=== PATIENT | female | born 1975 | race Two or more races ===

== ENCOUNTER 2021-07-27 10:10 | Inpatient (IN) | payer MEDICAID ==
[~2021-07-27] VITALS: Ht 172.7 cm; Wt 79.1 kg
--- NOTE | 2021-07-27 10:12 | NUR ---
MOVE SHEET SUBMITTED AND CALLED FOR TELE BED.
[2021-07-27] MEDS ORDERED: methylPREDNISolone SOD SUCC 125 MG/2ML VIAL IV ONE (10:30)
[2021-07-27] MEDS ORDERED: KETOROLAC TROMETHAMINE INJ 30 MG/ML VIAL IV ONE (10:30)
--- NOTE | 2021-07-27 10:30 | NUR ---
SALINE LOCK ESTABLISHED, BLOOD DRAWN AND SENT TO LAB
[2021-07-27] MEDS ORDERED: methylPREDNISolone SOD SUCC 125 MG/2ML VIAL ONE (10:31)
[2021-07-27] MEDS ORDERED: KETOROLAC TROMETHAMINE 15 MG/ML VIAL ONE (10:34)
--- NOTE | 2021-07-27 10:50 | NUR ---
URINE COLLECTED AND SENT TO LAB
--- NOTE | 2021-07-27 11:00 | NUR ---
COVID SWAB DONE AND SENT TO LAB
[2021-07-27 11:17] LABS: BASOPHILS % (AUTO) 0.3 % (0.0-2.0); D-DIMER 0.71 mg/L(FEU (0.17-0.50); EOSINOPHILS % (AUTO) 0.1 % (0.0-6.0); HEMATOCRIT 40 % (33-45); HEMOGLOBIN 13.6 g/dL (11.5-14.8); LYMPHOCYTES # (AUTO) 0.8 K/uL (0.8-4.8); LYMPHOCYTES % (AUTO) 19.7 % (20.0-44.0); MEAN CORPUSCULAR HGB CONC 34 g/dl (31.0-36.0); MEAN CORPUSCULAR VOLUME 93 fL (82-100); MONOCYTES # (AUTO) 0.1 K/uL (0.1-1.30); MONOCYTES % (AUTO) 2.7 % (2.0-12.0); NEUTROPHILS % (AUTO) 77.2 % (43.0-81.0); PLATELET COUNT (AUTO) 159 K/uL (150-450); RED BLOOD CELL COUNT(AUTO) 4.28 MIL/uL (4.0-5.2); WHITE BLOOD COUNT (AUTO) 3.8 K/uL (4.3-11.0)
[2021-07-27 11:36] LABS: BILIRUBIN,URINE SMALL (NEGATIVE); COLOR,URINE YELLOW (YELLOW); LEUKOCYTE ESTERASE ,URINE NEGATIVE (NEGATIVE); NITRITE, URINE NEGATIVE (NEGATIVE); PH,URINE 7.5 (5.0-8.0); PROTEIN,URINE >=300 mg/dl (NEGATIVE); UGLUCOSE NEGATIVE (NEGATIVE)
[2021-07-27] MEDS ORDERED: DEXA6TAB PO (11:44)
[2021-07-27] MEDS ORDERED: HYDR25TA4 PO (11:44)
--- NOTE | 2021-07-27 11:58 | NUR ---
GOT BED 201
[2021-07-27 12:04] LABS: CREATINE KINASE, TOTAL 257 U/L (26-192)
[2021-07-27 12:06] LABS: BACTERIA,URINE Few /HPF (None Seen); SQUAMOUS EPITHELIAL CELL,UR Moderate /HPF (None Seen)
[2021-07-27 12:07] LABS: CALCIUM, SERUM 7.9 mg/dL (8.5-10.1); CARBON DIOXIDE 29 mmol/L (21-32); CHLORIDE 103 mmol/L (98-107); GLUCOSE 112 mg/dL (74-106); POTASSIUM 3.7 mmol/L (3.5-5.1); SODIUM SERUM 136 mmol/L (136-145); UREA NITROGEN, BLOOD 10 mg/dL (7-18)
--- NOTE | 2021-07-27 12:07 | NUR ---
REPORT GIVEN TO BEBETO DOLAN FOR SHERWIN.
--- NOTE | 2021-07-27 12:09 | NUR ---
[facility] CALLED SENIOR AIR DIRECTOR PAGED.
[2021-07-27 12:21] LABS: ALANINE AMINOTRANSFERASE 157 U/L (12-78); ALBUMIN 2.9 g/dL (3.4-5.0); ALKALINE PHOSPHATASE 70 U/L (46-116); ASPARTATE AMINOTRANSFERASE 175 U/L (15-37); BILIRUBIN,TOTAL 0.3 mg/dL (0.2-1.0); TOTAL PROTEIN, SERUM 6.7 g/dL (6.4-8.2)
--- NOTE | 2021-07-27 12:35 | NUR ---
pt transferred to tele unit per acls protocol.
--- NOTE | 2021-07-27 12:55 | NUR ---
Patient arrived via gurney at 12:50pm, from ER. Patient AO X 4, able to make needs known, can follow simple commands, no apparent distress noted, breathing even and unlabored. Admitting hospitalist made aware of the patient's arrival. Patient admitting diagnosis COVID - 19 PNA. Patient's vital signs within normal limits, no complained of facial numbness or weakness, no extremity numbness or weakness at this time, no dizziness, no palpitations. Skin intact, warm to touch, no pallor or cyanosis noted. Patient oriented with use of call lights, use of bed control, use of telephone and tv control, also introduces REDEYE GUNNER and RN assigned for today, verbalized understanding and gratitude. All belongings written in the inventory list. All needs attended, kept clean and dry, call light left within reach, safety precautions in place, brakes locked, side rails up X 2, will monitor closely for any changes.
[2021-07-27] MEDS ORDERED: ALBUTEROL SULFATE 8 GM HFA.AER.AD IH PRN (13:30)
[2021-07-27] MEDS ORDERED: BENZONATATE 100 MG CAPSULE PO PRN (13:30)
[2021-07-27] MEDS ORDERED: ONDANSETRON HCL/PF 4 MG/2 ML VIAL IVP PRN (13:30)
[2021-07-27] MEDS ORDERED: ALBUTEROL FS 2.5 MG/3 ML VIAL.NEB NEB PRN (14:00)
[2021-07-27] MEDS: ACETAMINOPHEN 325 MG TABLET PO PRN (15:25)
[2021-07-27] MEDS ORDERED: IPRATROPIUM/ALBUTEROL INHALER IH PRN (15:30)
[2021-07-27] MEDS: ENOXAPARIN SODIUM 40 MG/0.4 ML DISP.SYRIN SQ SCH (16:02)
--- NOTE | 2021-07-27 18:15 | NUR ---
RN CLOSING NOTES Patient lying in bed, no shortness of breath, respirations even and unlabored, no apparent distress noted, no dizziness, no palpitations, no chest pain during shift. Kept clean and dry, all needs attended, call light left within reach, safety precautions in place, brakes locked, frequent visual checks rendered, side rails up X 2, will endorse to next shift for continuity of care.
--- NOTE | 2021-07-27 19:38 | NUR ---
BUTTON STATION WORKER NOTES SR-[id number] ON TELE MONITOR,RESTING COMFORTABLY ON BED,LAYING ON RIGHT SIDE POSITION,BREATHING NON LABORED,DROPLET ISOLATION,AWAITING PCR RESULT.COUGH A LOT PRODUCTIVELY,ABLE TO COUGH OUT MUCUS.SALINE LOCK LEFT AC INTACT AND PATENT,BEDREST,CALL LIGHT IN REACH.NEEDS ANTICIPATED.
[2021-07-27 20:00] VITALS: BP 106/60
[2021-07-28] VITALS: BP 100/62
--- NOTE | 2021-07-28 02:39 | NUR ---
RN NOTE RECEIVED PATIENT VIA GURNEY. PATIENT IS ALERT AND ORIENTED X4. ABLE TO MAKE NEEDS KNOWN. BREATHING EVEN AND UNLABORED. ON SUPPLEMENTAL OXYGEN AT 3L/MIN VIA NASAL CANNULA. DENIES FEELING SOB. DENIES CHEST PAIN. ON TELE MONITORING, SINUS RHYTHM. SKIN WARM AND DRY. NOTED WITH LEFT AC 18G, NO IVF RUNNING. NO INFILTRATION. DENIES CONSTIPATION. ABDOMEN SOFT AND NON-TENDER. DENIES PAIN AT THIS TIME. ALL NEEDS ATTENDED. BED LOW, IN LOCKED POSITION. CALL LIGHT WITHIN REACH.
[2021-07-28] MEDS: ACETAMINOPHEN 325 MG TABLET PO PRN (03:16)
--- NOTE | 2021-07-28 03:48 | NUR ---
RN NOTE PATIENT COMPLAINED OF HEADACHE AND REQUESTING FOR TYLENOL. OFFERED FLUIDS FOR HYDRATION. ADMINISTERED TYLENOL 650 MG PER MD. ALL NEEDS ATTENDED. WILL CONTINUE TO MONITOR.
[2021-07-28 04:00] VITALS: BP_SYST 112; BP_SYST 90; BP_DIAS 56; BP_DIAS 76
[2021-07-28 06:48] LABS: BASOPHILS % (AUTO) 0.1 % (0.0-2.0); HEMATOCRIT 39 % (33-45); HEMOGLOBIN 13.2 g/dL (11.5-14.8); LYMPHOCYTES % (AUTO) 12.6 % (20.0-44.0); MEAN CORPUSCULAR HGB CONC 34 g/dl (31.0-36.0); MEAN CORPUSCULAR VOLUME 94 fL (82-100); MONOCYTES % (AUTO) 4.2 % (2.0-12.0); NEUTROPHILS % (AUTO) 83.1 % (43.0-81.0); PLATELET COUNT (AUTO) 188 K/uL (150-450); RED BLOOD CELL COUNT(AUTO) 4.13 MIL/uL (4.0-5.2); WHITE BLOOD COUNT (AUTO) 4.8 K/uL (4.3-11.0)
[2021-07-28 06:49] LABS: LYMPHOCYTES # (AUTO) 0.6 K/uL (0.8-4.8); MONOCYTES # (AUTO) 0.2 K/uL (0.1-1.30)
[2021-07-28 07:17] LABS: ALBUMIN 2.7 g/dL (3.4-5.0); BILIRUBIN,TOTAL 0.3 mg/dL (0.2-1.0); CALCIUM, SERUM 8.1 mg/dL (8.5-10.1); CREATININE 0.8 mg/dL (0.6-1.3); POTASSIUM 3.9 mmol/L (3.5-5.1); TOTAL PROTEIN, SERUM 6.6 g/dL (6.4-8.2)
--- NOTE | 2021-07-28 07:30 | NUR ---
HEAD BATCHER NOTE RECEIVED PATIENT IN BED AWAKE. PATIENT IS ALERT AND ORIENTED X4. ABLE TO MAKE NEEDS KNOWN. BREATHING EVEN AND UNLABORED. ON O2 INHALATION VIA NASAL CANNULA AT 3L/MIN . NO SOB NOTED. NO RESPIRATORY DISTRESS NOTED.ON TELE MONITORING, SINUS RHYTHM. SKIN WARM AND DRY. IV ACCESS ON LEFT AC 18G. NO INFILTRATION. NO IV FLUIDS NOTED. ABDOMEN SOFT AND NON-TENDER. DENIES PAIN AT THIS TIME. ALL NEEDS ATTENDED. BED LOW, IN LOCKED POSITION. CALL LIGHT AND TABLE WITHIN REACH.WILL CONTINUE TO MONITOR THE PATIENT.
[2021-07-28 08:00] VITALS: BP 91/61
[2021-07-28] MEDS: DEXAMETHASONE SOD PHOSPHATE 10 MG/ML VIAL IV SCH (08:32)
[2021-07-28] MEDS: ENOXAPARIN SODIUM 40 MG/0.4 ML DISP.SYRIN SQ SCH (08:34)
[2021-07-28 12:00] VITALS: BP 105/63
--- NOTE | 2021-07-28 15:08 | NUR ---
RN NOTES PATIENT WANTS TO SIGN A WILL AND NEEDS A WITNESS, CALLED HELP DESK TEAM LEADER AND INFORMED THEM.
--- NOTE | 2021-07-28 15:17 | NUR ---
Pt. requested to speak with BRENNA regarding advanced directive. BRENNA spoke with pt. and her privacy attorney [Usha] regarding filling out an advanced directive. BRENNA provided pt. with the advanced directive packet and the number to the Mobile Notary [[place] [phone]]. Pt.'s privacy attorney will be reaching out to the notary.
[2021-07-28 16:00] VITALS: BP 101/68
[2021-07-28] MEDS ORDERED: diphenhydrAMINE HCL 50 MG/ML VIAL IM ONE (16:00)
[2021-07-28] MEDS ORDERED: METOCLOPRAMIDE HCL 10 MG/2 ML VIAL IM ONE (16:00)
--- NOTE | 2021-07-28 18:30 | NUR ---
REINFORCING STEEL ERECTOR NOTE PATIENT IN BED AWAKE. PATIENT IS ALERT AND ORIENTED X4. ABLE TO MAKE NEEDS KNOWN. ON O2 INHALATION VIA NASAL CANNULA AT 3L/MIN . NO SOB NOTED. NO RESPIRATORY DISTRESS NOTED.ON TELE MONITORING, SINUS RHYTHM. SKIN WARM AND DRY. IV ACCESS ON LEFT AC 18G intact. NO INFILTRATION. NO IV FLUIDS NOTED. ABDOMEN SOFT AND NON-TENDER. DENIES PAIN AT THIS TIME. ALL NEEDS ATTENDED.ALL DUE MEDS GIVEN ORDERED. BED LOW, IN LOCKED POSITION. CALL LIGHT AND TABLE WITHIN REACH.WILL ENDORSE INCOMING SHIFT FOR SHERWIN..
[2021-07-28 20:00] VITALS: BP 91/63
--- NOTE | 2021-07-28 20:32 | NUR ---
RN NOTE RECEIVED PATIENT IN BED, SLEEPING, AROUSABLE TO NAME AND TOUCH. ABLE TO MAKE NEEDS KNOWN. BREATHING EVEN AND UNLABORED. NO SOB NOTED. CURRENTLY ON SUPPLEMENTAL OXYGEN AT 3L/MIN VIA NASAL CANNULA. DENIES CHEST PAIN AT THIS TIME. ON TELE MONITORING, SINUS RHYTHM. SKIN WARM AND DRY. NO CHILLS BUT PATIENT REPORTS BEING COLD, PROVIDED WITH EXTRA BLANKETS. OFFERED FLUIDS FOR HYDRATION. NOTED WITH LEFT AC 18G, NO IVF RUNNING. NO INFILTRATION. DENIES PAIN. ALL NEEDS ATTENDED. BED LOW, IN LOCKED POSITION. CALL LIGHT WITHIN REACH. WILL CONTINUE TO MONITOR.
[2021-07-29] VITALS: BP 90/54
[2021-07-29] MEDS: GUAIFENESIN/D-METHORPHAN HB 5 ML UDC PO PRN (00:30)
--- NOTE | 2021-07-29 00:34 | NUR ---
RN NOTE PATIENT NOTED WITH COUGHING THAT LEADS TO MILD SHORTNESS OF BREATH. OXYGEN SATURATION OF 91 PERCENT. COUGH IS NON-PRODUCTIVE AT THIS TIME. PROVIDED WITH FLUIDS. INCREASED OXYGEN VIA NASAL CANNULA FROM 3L TO 5L/MIN. HUMIDIFIER ADDED. PER PATIENT HER NOSE WAS FEELING DRY. OFFERED COUGH MEDICATION. ADMINISTERED ROBITUSSIN DM PER MD ORDER FOR COUGH. HOB SEMI-ENG. WILL CONTINUE TO MONITOR. CALL LIGHT WITHIN REACH.
[2021-07-29 04:00] VITALS: BP 92/56
[2021-07-29 06:13] LABS: HEMATOCRIT 38 % (33-45); HEMOGLOBIN 12.7 g/dL (11.5-14.8); LYMPHOCYTES # (AUTO) 0.8 K/uL (0.8-4.8); LYMPHOCYTES % (AUTO) 8.9 % (20.0-44.0); MEAN CORPUSCULAR HGB CONC 34 g/dl (31.0-36.0); MEAN CORPUSCULAR VOLUME 94 fL (82-100); MONOCYTES # (AUTO) 0.5 K/uL (0.1-1.30); MONOCYTES % (AUTO) 5.4 % (2.0-12.0); NEUTROPHILS % (AUTO) 85.7 % (43.0-81.0); PLATELET COUNT (AUTO) 239 K/uL (150-450); RED BLOOD CELL COUNT(AUTO) 3.99 MIL/uL (4.0-5.2); WHITE BLOOD COUNT (AUTO) 9.4 K/uL (4.3-11.0)
--- NOTE | 2021-07-29 06:18 | NUR ---
RN NOTE NO SIGNIFICANT CHANGES. OXYGEN SATURATION REMAINED IN THE LOW 90'S. OXYGEN TITRATED DOWN TO 3L/MIN FROM 5L/MIN. TOLERATING WELL. PATIENT PREFERS SUPINE POSITION. ALL NEEDS ATTENDED. CALL LIGHT WITHIN REACH.
[2021-07-29 06:39] LABS: CALCIUM, SERUM 8.6 mg/dL (8.5-10.1); CREATININE 0.9 mg/dL (0.6-1.3); MAGNESIUM 2.5 mg/dL (1.8-2.4); POTASSIUM 4.1 mmol/L (3.5-5.1)
--- NOTE | 2021-07-29 07:30 | NUR ---
FINANCIAL SALES MANAGER OPENING NOTES RECEIVED PATIENT ON BED AWAKE AND A/O X4. ON O2 AT 3LPM WITH HUMIDIFIER. NO SOB NOTED. NOT IN DISTRESS. WITH NO COMPLAINTS OF PAIN AT THIS TIME. WITH IV ACCESS AT LEFT AC G18 SALINE LOCKED, PATENT AND INTACT. ON TELE MONITOR CURRENTLY READING SINUS RHYTHM AT 76BPM. SAFETY MEASURES IN PLACED. CALL LIGHT WITHIN REACH, BED ON LOWEST LOCKED POSITION, SIDE RAILS UP X2. WILL CONTINUE TO MONITOR.
[2021-07-29 08:00] VITALS: BP 88/54
[2021-07-29 08:28] LABS: ALBUMIN 2.7 g/dL (3.4-5.0); BILIRUBIN,DIRECT 0.1 mg/dL (0.0-0.2); BILIRUBIN,TOTAL 0.3 mg/dL (0.2-1.0); TOTAL PROTEIN, SERUM 6.6 g/dL (6.4-8.2)
[2021-07-29] MEDS: DEXAMETHASONE SOD PHOSPHATE 10 MG/ML VIAL IV SCH (08:47)
[2021-07-29] MEDS: ENOXAPARIN SODIUM 40 MG/0.4 ML DISP.SYRIN SQ SCH (08:47)
[2021-07-29 12:00] VITALS: BP 95/57
[2021-07-29 16:00] VITALS: BP 108/69
[2021-07-29] MEDS ORDERED: IPRATROPIUM NEB FS 0.5 MG/2.5 ML AMPUL.NEB NEB PRN (16:00)
[2021-07-29] MEDS ORDERED: ALBUTEROL FS 2.5 MG/3 ML VIAL.NEB NEB PRN (16:00)
--- NOTE | 2021-07-29 18:25 | NUR ---
BANQUET STEWARDESS CLOSING NOTES PATIENT ON BED RESTING AND A/O X4. ON O2 AT 3LPM WITH HUMIDIFIER. NO SOB NOTED. NOT IN DISTRESS. WITH NO COMPLAINTS OF PAIN AT THIS TIME. WITH IV ACCESS AT LEFT AC G18 SALINE LOCKED, PATENT AND INTACT. ON TELE MONITOR CURRENTLY READING SINUS RHYTHM AT 61BPM. SAFETY MEASURES IN PLACED. CALL LIGHT WITHIN REACH, BED ON LOWEST LOCKED POSITION, SIDE RAILS UP X2. WILL ENDORSE TO NEXT SHIFT FOR SHERWIN.
--- NOTE | 2021-07-29 19:30 | NUR ---
RN OPENING NOTE RECEIVED PATIENT IN BED. A/OX4. ON OXYGEN 3L/ANN MARIE NASAL CANNULA, O2 SAT 91%, INCREASED O2 TO 6L/ANN MARIE VIA NASAL CANNULA WITH HUMIDIFIED AIR O2 SAT 94%. PATIENT IS GRUNTING WHEN SITTING UP AND GETTING OUT OF BED. AMBULATED WITH ASSIST TO RESTROOM. NO C/OP PAIN AT THIS TIME. IV ACCESS IN LAC#18 PATENT AND SALINE LOCKED. BED IS LOW AND LOCKED, HOB ELEVATED IN SEMI FOWLERS, SIDE RIALS UP X2, CALL LIGHT WITHIN REACH.
[2021-07-29 20:00] VITALS: BP 106/61
[2021-07-30] VITALS (7 sets, daily range): BP systolic 91–124; BP diastolic 48–76
--- NOTE | 2021-07-30 04:18 | NUR ---
RN NOTE PATIENT O2 REQUIREMENTS INCREASE TO 15L NRB NOW 02 SAT 97%. ON 6L NC IS 87-90%
[2021-07-30 06:46] LABS: HEMATOCRIT 38 % (33-45); LYMPHOCYTES # (AUTO) 0.9 K/uL (0.8-4.8); LYMPHOCYTES % (AUTO) 14.5 % (20.0-44.0); MEAN CORPUSCULAR HGB CONC 34 g/dl (31.0-36.0); MEAN CORPUSCULAR VOLUME 94 fL (82-100); MONOCYTES # (AUTO) 0.6 K/uL (0.1-1.30); MONOCYTES % (AUTO) 9.2 % (2.0-12.0); NEUTROPHILS # (AUTO) 4.7 K/uL (1.8-8.9); NEUTROPHILS % (AUTO) 76.3 % (43.0-81.0); PLATELET COUNT (AUTO) 255 K/uL (150-450); RED BLOOD CELL COUNT(AUTO) 4.09 MIL/uL (4.0-5.2); WHITE BLOOD COUNT (AUTO) 6.2 K/uL (4.3-11.0)
--- NOTE | 2021-07-30 07:09 | NUR ---
RN OPENING NOTES RECEIVED PATIENT ON BED AWAKE AND A/O X4. ON O2 AT 15L NRB. NO SOB NOTED. NOT IN DISTRESS. WITH NO COMPLAINTS OF PAIN AT THIS TIME. WITH IV ACCESS AT LEFT AC G18 SALINE LOCKED, PATENT AND INTACT. SAFETY MEASURES IN PLACED. CALL LIGHT WITHIN REACH, BED ON LOWEST LOCKED POSITION, SIDE RAILS UP X2. WILL CONTINUE TO MONITOR THROUGHOUT SHIFT.
[2021-07-30 07:28] LABS: ALBUMIN 2.7 g/dL (3.4-5.0); BILIRUBIN,DIRECT 0.2 mg/dL (0.0-0.2); BILIRUBIN,TOTAL 0.4 mg/dL (0.2-1.0); CALCIUM, SERUM 8.9 mg/dL (8.5-10.1); CREATININE 0.8 mg/dL (0.6-1.3); MAGNESIUM 2.5 mg/dL (1.8-2.4); TOTAL PROTEIN, SERUM 6.8 g/dL (6.4-8.2)
--- NOTE | 2021-07-30 07:42 | NUR ---
RNN CLOSING NOTE IN BED. A/OX4. INCREASED ON OXYGEN 15L/ANN MARIE NRB, SOB WHEN AMBULATING WITH ASSIST TO BATHROOM. LAC#18 INTACT. BED REMAINS LOW AND LOCKED, HOB ELEVATED IN SEMI FOWLERS, SIDE RIALS UP X2, CALL LIGHT WITHIN REACH. WILL ENDORSE TO ONCOMING SHIFT.
[2021-07-30] MEDS: DEXAMETHASONE SOD PHOSPHATE 10 MG/ML VIAL IV SCH (08:31)
[2021-07-30] MEDS: ENOXAPARIN SODIUM 40 MG/0.4 ML DISP.SYRIN SQ SCH (08:33)
[2021-07-30] MEDS ORDERED: REMDESIVIR (CHARGED) 200 MG, *LOADING DOSE 1 EA in IV NS 0.9% 210 ML IV ONE ×2 (09:00→15:00)
[2021-07-30] MEDS: GUAIFENESIN/D-METHORPHAN HB 5 ML UDC PO PRN (09:28)
[2021-07-30 14:11] LABS: C-REACTIVE PROTEIN 0.4 mg/dL (0.0-0.9)
--- NOTE | 2021-07-30 18:40 | NUR ---
RN CLOSING NOTES PT IS RESTING IN BED, A/O X 4, NO S/S OF SOB OR DISTRESS NOTED AT THIS TIME. IV ACCESS AT L AC 18G. PT CURRENTLY ON 6L NC SATING 91-93%. ALL SAFETY MEASURES IN PLACE, BED IN LOWEST LOCKED POSITION, SR UP X 3, CALL LIGHT WITHIN REACH. WILL ENDORSE TO WELDER BOILERMAKER NURSE FOR SHERWIN.
--- NOTE | 2021-07-30 19:28 | NUR ---
DROSS SKIMMER OPENING NOTES RECEIVED PT RESTING IN BED. A/O X 4. NO SOB OR S/S OF RESPIRATORY DISTRESS. ON 6 L OF O2 @ 93%. EXTERNAL PETROLEUM PRODUCTION ENGINEER IN PLACE. IV ACCESS LAC 18G, INTACT AND PATENT. SAFETY PRECAUTIONS IN PLACE. BED IN LOWEST LOCKED POSITION, HOB ELEVATED, SIDE RAILS UP X2, AND CALL LIGHT AND TABLE WITHIN REACH. WILL CONTINUE WITH PLAN OF CARE.
[2021-07-31] VITALS: BP 105/64
[2021-07-31 04:00] VITALS: BP 101/55
--- NOTE | 2021-07-31 06:27 | NUR ---
TESTING AND REGULATING CHIEF CLOSING NOTES PT RESTING IN BED, EASILY AROUSABLE. A/O X 4. NO SOB OR S/S OF RESPIRATORY DISTRESS. ON 6 L OF O2 @ 93%. EXTERNAL SHOVEL HANDLE ASSEMBLER IN PLACE READING SB-SR. IV ACCESS LAC 18G, INTACT AND PATENT. ALL NEEDS MET AT THIS TIME. SAFETY PRECAUTIONS IN PLACE AT ALL TIMES. BED IN LOWEST LOCKED POSITION, HOB ELEVATED, SIDE RAILS UP X2, AND CALL LIGHT AND TABLE WITHIN REACH. WILL ENDORSE TO ONCOMING NURSE FOR SHERWIN.
--- NOTE | 2021-07-31 07:07 | NUR ---
RN OPENING NOTES RECEIVED PATIENT ON BED ASLEEP AND A/O X4. ON O2 AT 6L NC SATING AT 96%. NO SOB NOTED. NOT IN DISTRESS. WITH NO COMPLAINTS OF PAIN AT THIS TIME. WITH IV ACCESS AT LEFT AC G18 SALINE LOCKED, PATENT AND INTACT. SAFETY MEASURES IN PLACED. CALL LIGHT WITHIN REACH, BED ON LOWEST LOCKED POSITION, SIDE RAILS UP X2. WILL CONTINUE TO MONITOR THROUGHOUT SHIFT.
[2021-07-31 07:30] LABS: HEMATOCRIT 40 % (33-45); HEMOGLOBIN 13.7 g/dL (11.5-14.8); LYMPHOCYTES # (AUTO) 1.3 K/uL (0.8-4.8); LYMPHOCYTES % (AUTO) 16.9 % (20.0-44.0); MEAN CORPUSCULAR HGB CONC 34 g/dl (31.0-36.0); MEAN CORPUSCULAR VOLUME 93 fL (82-100); MONOCYTES # (AUTO) 0.5 K/uL (0.1-1.30); NEUTROPHILS # (AUTO) 5.9 K/uL (1.8-8.9); NEUTROPHILS % (AUTO) 76.1 % (43.0-81.0); PLATELET COUNT (AUTO) 291 K/uL (150-450); RED BLOOD CELL COUNT(AUTO) 4.32 MIL/uL (4.0-5.2); WHITE BLOOD COUNT (AUTO) 7.8 K/uL (4.3-11.0)
[2021-07-31 08:00] VITALS: BP 93/62
[2021-07-31] MEDS: DEXAMETHASONE SOD PHOSPHATE 10 MG/ML VIAL IV SCH (08:14)
[2021-07-31] MEDS: ENOXAPARIN SODIUM 40 MG/0.4 ML DISP.SYRIN SQ SCH (08:15)
[2021-07-31] MEDS: GUAIFENESIN/D-METHORPHAN HB 5 ML UDC PO PRN (08:23)
[2021-07-31] MEDS ORDERED: REMDESIVIR (CHARGED) 100 MG in IV NS 0.9% 100 ML IV SCH (09:00)
[2021-07-31 10:15] LABS: ALBUMIN 2.7 g/dL (3.4-5.0); BILIRUBIN,TOTAL 0.4 mg/dL (0.2-1.0); CALCIUM, SERUM 8.5 mg/dL (8.5-10.1); CREATININE 0.8 mg/dL (0.6-1.3); TOTAL PROTEIN, SERUM 6.7 g/dL (6.4-8.2)
[2021-07-31 12:00] VITALS: BP 94/62
[2021-07-31] MEDS: REMDESIVIR (CHARGED) 100 MG in IV NS 0.9% 100 ML IV SCH (14:36)
[2021-07-31 16:00] VITALS: BP 94/55
--- NOTE | 2021-07-31 18:30 | NUR ---
RN CLOSING NOTES PT IS RESTING IN BED COMFORTABLY A/O X4, NO S/S OF RESP DISTRESS OF SOB. NO C/O OF PAIN AT THIS TIME. IV ACCESS AT L AC 18G FLUSHING WELL AND PATENT. SECOND DOSE OF REMDESIVIR GIVEN. PT IS AMBULATORY WITH ASSIST. PT ON 5L NC SATING BETWEEN 92-96%. ALL SAFETY MEASURES IN PLACE, BED IN LOWEST LOCKED POSITION, SR UP X 3, CALL LIGHT WITHIN REACH. WILL ENDORSE TO FILM MASKER NURSE FOR SHERWIN.
--- NOTE | 2021-07-31 19:30 | NUR ---
RN OPENING NOTES RECEIVED PATIENT IN BED, SLEEPING, A/O X4 AND VERBALLY RESPONSIVE. ON O2 AT 5L N/C AND PT TOLERATED WELL. NO SOB NOTED. BREATHING EVEN AND UNLABORED. IV ACCESS ON LAC# 18G INTACT AND PATENT. NO S/S OF INFILTRATIONS. NO C/O PAIN OR DISCOMFORT. NO ACUTE DISTRESS. ALL SAFETY MEASURES IN PLACE. BED ON LOWEST POSITION AND LOCKED, SIDE RAILS UP X2. PLACE CALL LIGHT WITH IN REACH. WILL CONTINUE TO MONITOR.
[2021-07-31 20:00] VITALS: BP 99/66
[2021-08-01] VITALS: BP 102/64
[2021-08-01 04:00] VITALS: BP 97/58
--- NOTE | 2021-08-01 06:41 | NUR ---
RN CLOSING NOTES PATIENT IN BED, SLEEPING BUT EASILY AROUSABLE, A/O X4 AND VERBALLY RESPONSIVE. ON O2 AT 5L N/C, O2 SAT 97% AND PT TOLERATED WELL. NO SOB NOTED. BREATHING EVEN AND UNLABORED. IV ACCESS ON LAC# 18G INTACT AND PATENT. NO S/S OF INFILTRATIONS. NO C/O PAIN OR DISCOMFORT. NO ACUTE DISTRESS. COOPERATIVE WITH CARE. ALL SAFETY MEASURES IN PLACE. BED ON LOWEST POSITION AND LOCKED, SIDE RAILS UP X2. PLACE CALL LIGHT WITH IN REACH. WILL ENDORSE TO MORNING SHIFT NURSE.
[2021-08-01 07:07] LABS: EOSINOPHILS % (AUTO) 0.3 % (0.0-6.0); HEMATOCRIT 41 % (33-45); HEMOGLOBIN 13.8 g/dL (11.5-14.8); LYMPHOCYTES # (AUTO) 1.3 K/uL (0.8-4.8); LYMPHOCYTES % (AUTO) 13.5 % (20.0-44.0); MEAN CORPUSCULAR HGB CONC 34 g/dl (31.0-36.0); MEAN CORPUSCULAR VOLUME 94 fL (82-100); MONOCYTES # (AUTO) 0.8 K/uL (0.1-1.30); MONOCYTES % (AUTO) 7.9 % (2.0-12.0); NEUTROPHILS # (AUTO) 7.6 K/uL (1.8-8.9); NEUTROPHILS % (AUTO) 78.3 % (43.0-81.0); PLATELET COUNT (AUTO) 340 K/uL (150-450); RED BLOOD CELL COUNT(AUTO) 4.34 MIL/uL (4.0-5.2); WHITE BLOOD COUNT (AUTO) 9.7 K/uL (4.3-11.0)
--- NOTE | 2021-08-01 07:50 | NUR ---
RN OPENING NOTES PATIENT AWAKE IN BED RESTING, A/O X4. NO S/S OF PAIN NOTED AT THIS TIME. ON 5L OXYGEN, NO DISTRESS OR SHORTNESS OF BREATH NOTED. IV ACCESS LAC #18G, INTACT, PATENT AND FLUSHING WELL. PATIENT HAVE AN EXTERNAL AUTOTRANSFUSIONIST WITH CURRENT READING OF S.R., NO CARDIAC DISTRESS NOTED. FALL AND SAFETY MEASURES IN PLACE, BED ALARM ON, BED IN LOW AND LOCK POSITION, CALL LIGHT AND TABLE WITHIN EASY REACH, SIDE RAILS UP X2. WILL CONTINUE TO MONITOR.
[2021-08-01 08:00] VITALS: BP 95/63
[2021-08-01 08:12] LABS: ALBUMIN 2.7 g/dL (3.4-5.0); BILIRUBIN,DIRECT 0.2 mg/dL (0.0-0.2); BILIRUBIN,TOTAL 0.5 mg/dL (0.2-1.0); TOTAL PROTEIN, SERUM 6.6 g/dL (6.4-8.2)
[2021-08-01] MEDS: DEXAMETHASONE SOD PHOSPHATE 10 MG/ML VIAL IV SCH (08:17)
[2021-08-01] MEDS: ENOXAPARIN SODIUM 40 MG/0.4 ML DISP.SYRIN SQ SCH (08:20)
[2021-08-01 09:51] LABS: ALBUMIN 2.7 g/dL (3.4-5.0); CALCIUM, SERUM 8.7 mg/dL (8.5-10.1); CREATININE 0.8 mg/dL (0.6-1.3); POTASSIUM 3.9 mmol/L (3.5-5.1)
[2021-08-01 10:15] LABS: BILIRUBIN,TOTAL 0.5 mg/dL (0.2-1.0); TOTAL PROTEIN, SERUM 6.7 g/dL (6.4-8.2)
[2021-08-01 12:02] VITALS: BP 92/57
[2021-08-01] MEDS ORDERED: LORAZEPAM INJ 2 MG/ML VIAL IV PRN (14:00)
[2021-08-01] MEDS: REMDESIVIR (CHARGED) 100 MG in IV NS 0.9% 100 ML IV SCH (15:31)
[2021-08-01 16:00] VITALS: BP 101/61
--- NOTE | 2021-08-01 18:49 | NUR ---
RN CLOSING NOTES PATIENT AWAKE IN BED RESTING, A/O X4. NO S/S OF PAIN NOTED AT THIS TIME. ON 5L OXYGEN, NO DISTRESS OR SHORTNESS OF BREATH NOTED. IV ACCESS LAC #18G, INTACT, PATENT AND FLUSHING WELL. PATIENT HAVE AN EXTERNAL PATIENT TRANSPORT ORDERLY WITH CURRENT READING OF S.R. AND HR OF 60, NO CARDIAC DISTRESS NOTED. ALL SCHEDULED MEDS ADMINISTERED. FALL AND SAFETY MEASURES IN PLACE, BED ALARM ON, BED IN LOW AND LOCK POSITION, CALL LIGHT AND TABLE WITHIN EASY REACH, SIDE RAILS UP X2. WILL ENDORSE TO EMISSIONS REPAIR TECHNICIAN.
[2021-08-01 20:00] VITALS: BP 96/58
[2021-08-02] VITALS: BP 96/58
[2021-08-02 04:00] VITALS: BP 98/57
--- NOTE | 2021-08-02 06:35 | NUR ---
RN CLOSING NOTES PATIENT AWAKE IN BED, ON 4LPM V NC WITH 96% O2 SAT LEVEL, NO SOB/ACUTE DISTRESS NOTED, NSR IN TELE MONITOR, MOSTLY BRADYCARDIA 45-HIGH 60S NOTED THOUGHT THE NIGHT, NO SIGNIFICANT CHANGE IN CONDITION DURING THE NIGHT, ALL SAFETY MEASURES IN PLACE, BED IN LOW AND LOCK POSITION, CALL LIGHT AND TABLE WITHIN REACH, SIDE RAILS UP X2. WILL ENDORSE CONTINUITY OF CARE TO ONCOMING NURSE.
[2021-08-02 06:43] LABS: BASOPHILS % (AUTO) 0.1 % (0.0-2.0); EOSINOPHILS % (AUTO) 2.3 % (0.0-6.0); HEMATOCRIT 40 % (33-45); HEMOGLOBIN 13.7 g/dL (11.5-14.8); LYMPHOCYTES # (AUTO) 1.3 K/uL (0.8-4.8); LYMPHOCYTES % (AUTO) 11.9 % (20.0-44.0); MEAN CORPUSCULAR HGB CONC 34 g/dl (31.0-36.0); MEAN CORPUSCULAR VOLUME 92 fL (82-100); MONOCYTES % (AUTO) 8.9 % (2.0-12.0); NEUTROPHILS # (AUTO) 8.3 K/uL (1.8-8.9); NEUTROPHILS % (AUTO) 76.8 % (43.0-81.0); PLATELET COUNT (AUTO) 380 K/uL (150-450); RED BLOOD CELL COUNT(AUTO) 4.32 MIL/uL (4.0-5.2); WHITE BLOOD COUNT (AUTO) 10.8 K/uL (4.3-11.0)
--- NOTE | 2021-08-02 07:20 | NUR ---
RN NOTES PATIENT RESTING IN BED, EYES CLOSED, ABLE TO BE AWAKENED. A/O X4, ABLE TO MAKE NEEDS KNOWN. ON O2 VIA NC, CURRENTLY AT 4LPM PER COMPOSITION MOLDER RN REPORT, TITRATED FROM 5L. OCCASIONAL COUGH NOTED BUT NOT BOTHERSOME AT THIS TIME. IV LINE INTACT AND PATENT. SAFETY MEASURES IN PLACE. WILL CONTINUE TO MONITOR.
[2021-08-02 07:24] LABS: ALBUMIN 2.6 g/dL (3.4-5.0); BILIRUBIN,TOTAL 0.6 mg/dL (0.2-1.0); CALCIUM, SERUM 8.9 mg/dL (8.5-10.1); CREATININE 0.7 mg/dL (0.6-1.3); POTASSIUM 3.6 mmol/L (3.5-5.1); TOTAL PROTEIN, SERUM 6.4 g/dL (6.4-8.2)
[2021-08-02 08:00] VITALS: BP 92/56
[2021-08-02] MEDS: DEXAMETHASONE SOD PHOSPHATE 10 MG/ML VIAL IV SCH (08:08)
[2021-08-02] MEDS: ENOXAPARIN SODIUM 40 MG/0.4 ML DISP.SYRIN SQ SCH (08:08)
--- NOTE | 2021-08-02 11:35 | NUR ---
RN NOTES DR. ERNST IN THE UNIT TO SEE THE PATIENT; ORDERS NOTED.
[2021-08-02 12:00] VITALS: BP 99/62
[2021-08-02] MEDS ORDERED: POLYETHYLENE GLYCOL 3350 17 GM POWD.PACK PO ONE (12:00)
[2021-08-02] MEDS: REMDESIVIR (CHARGED) 100 MG in IV NS 0.9% 100 ML IV SCH (15:04)
[2021-08-02 16:00] VITALS: BP 90/61
--- NOTE | 2021-08-02 16:57 | NUR ---
RN NOTES TITRATED O2 TO 3LPM VIA NC AT THIS TIME, PATIENT ABLE TO TOLERATE. WILL CONTINUE TO MONITOR.
--- NOTE | 2021-08-02 18:58 | NUR ---
RN NOTES DUE MEDS GIVEN TODAY. PROVIDED PATIENT W/ PRUNE JUICE FOR BOWEL MGT, TAKEN FAIRLY BY PATIENT. NOT IN ACUTE DISTRESS AT THIS TIME; NO SOB NOTED. SAFETY MEASURES MAINTAINED. WILL ENDORSE TO TIG WELDER RN FOR SHERWIN.
--- NOTE | 2021-08-02 19:10 | NUR ---
RN NOTES RECEIVED REPORT FROM MORNING NURSE. PATIENT IN BED A/O X4 ABLE TO MAKE NEEDS KNOW YORUBA SPEAKING. WITH OXYGEN INHALATION AT 3 LPM VIA NASAL CANULA SATING 98%. WITH IV ACCESS AT L AC #18 SL. PATENT FLUSHES WELL. VITAL SIGNS TAKEN AND RECORDED AFEBRILE. ALL SAFETY MEASURES IN PLACE AT ALL TIMES. BED ON LOWEST POSITION AND LOCKED. CALL LIGHT WITHIN REACH. WILL CLOSELY MONITOR THE PATIENT
[2021-08-02 20:00] VITALS: BP 99/61
[2021-08-03] VITALS: BP 106/67
[2021-08-03 04:00] VITALS: BP 96/64
--- NOTE | 2021-08-03 06:08 | NUR ---
RN NOTES PATIENT REMAINS STABLE. NO SIGNIFICANT CHANGES IN HEALTH CONDITION. PATIENT ON 3 L OXYGEN VIA NC TOLERATING WELL SATING 98%. ALL DUE MEDS GIVEN ORDERED. PATIENT SINUS MAMADOU ON 45'S. NO DISTRESS NO DISCOMFORT NOTED. ALL SAFETY MEASURES IN PLACE AT ALL TIMES. HOB ELEVATED. CALL LIGHT WITHIN REACH. WILL CLOSELY MONITOR THE PATIENT.
[2021-08-03 06:59] LABS: BASOPHILS % (AUTO) 0.1 % (0.0-2.0); EOSINOPHILS % (AUTO) 5.2 % (0.0-6.0); HEMATOCRIT 39 % (33-45); HEMOGLOBIN 13.6 g/dL (11.5-14.8); LYMPHOCYTES # (AUTO) 1.3 K/uL (0.8-4.8); LYMPHOCYTES % (AUTO) 13.1 % (20.0-44.0); MEAN CORPUSCULAR HGB CONC 35 g/dl (31.0-36.0); MEAN CORPUSCULAR VOLUME 92 fL (82-100); MONOCYTES # (AUTO) 0.8 K/uL (0.1-1.30); MONOCYTES % (AUTO) 8.6 % (2.0-12.0); PLATELET COUNT (AUTO) 416 K/uL (150-450); RED BLOOD CELL COUNT(AUTO) 4.25 MIL/uL (4.0-5.2); WHITE BLOOD COUNT (AUTO) 9.6 K/uL (4.3-11.0)
[2021-08-03 07:23] LABS: ALBUMIN 2.5 g/dL (3.4-5.0); BILIRUBIN,TOTAL 0.5 mg/dL (0.2-1.0); CALCIUM, SERUM 8.3 mg/dL (8.5-10.1); CREATININE 0.7 mg/dL (0.6-1.3); POTASSIUM 3.8 mmol/L (3.5-5.1); TOTAL PROTEIN, SERUM 6.4 g/dL (6.4-8.2)
--- NOTE | 2021-08-03 07:30 | NUR ---
RN OPENING NOTES PT IS SLEEPING IN BED, EASY TO AROUSE. A/O X4, GREENLANDIC SPEAKING. NO S/SX OF DISTRESS NOTED. NO SOB. BREATHING IS EVEN AND UNLABORED. PT ON 3L O2 SATURATING AT 98%. NO C/O PAIN. IV ACCESS LAC#18 PATENT AND INTACT. PT NOTED WITH EXTERNAL SECURITY INTERN WITH READING OF SINUS MAMADOU 48 PT IS ASLEEP. SAFETY MEASURES IN PLACE WITH BED LOCKED AT LOW POSITION AND SIDE RAILS UP X 2. CALL LIGHT IS WITHIN REACH. WILL CONTINUE TO MONITOR PATIENT THROUGHOUT SHIFT.
[2021-08-03 08:00] VITALS: BP 92/47
[2021-08-03] MEDS: DEXAMETHASONE SOD PHOSPHATE 10 MG/ML VIAL IV SCH (08:46)
[2021-08-03] MEDS: ENOXAPARIN SODIUM 40 MG/0.4 ML DISP.SYRIN SQ SCH (08:55)
[2021-08-03] MEDS ORDERED: DOCUSATE SODIUM 100 MG CAPSULE PO SCH (09:00)
[2021-08-03 12:00] VITALS: BP 95/58
[2021-08-03] MEDS: REMDESIVIR (CHARGED) 100 MG in IV NS 0.9% 100 ML IV SCH (14:00)
[2021-08-03] MEDS ORDERED: DEXA4TAB PO (14:22)
--- NOTE | 2021-08-03 17:47 | NUR ---
HYDROGRAPHICAL TECHNICAL OFFICER NOTE PT WAS DISCHARGED WITH STABLE VITAL SIGNS. DISCHARGE INSTRUCTIONS REVIEWED WITH PATIENT; PT SIGNED AND VERBALIZED UNDERSTANDING. PT WAS INSTRUCTED WHERE TO GET PRESCRIPTION. BELONGINGS ALL ACCOUNTED FOR AND SIGNED FOR. IV ACCESS AND ID BAND REMOVED. PT WAS PICKED UP BY SON, DANIELLE. I ACCOMPANIED PATIENT OUT THE UNIT VIA WHEELCHAIR. I OBSERVED PATIENT GET INTO CAR.
== END 2021-08-03 16:50 | disposition home or self-care (01) | DRG 137 ==
LOC: ER 10:22 → TELE2 12:19 → TELE1 07-28 03:02
PROVIDERS: ADMIT Nurse Practitioner Family; ATTEND Nurse Practitioner Acute Care
PROC: XW033E5 Introduction of Remdesivir Anti-infective into Peripheral Vein, Percutaneous Approach, New Technology Group 5 (ICD-10-PCS; principal; 2021-07-31)
DX: U07.1 COVID-19 (principal); J96.01 Acute respiratory failure with hypoxia; J12.82 Pneumonia due to coronavirus disease 2019; E44.0 Moderate protein-calorie malnutrition; E88.09 Other disorders of plasma-protein metabolism, not elsewhere classified; K59.00 Constipation, unspecified; R74.01 Elevation of levels of liver transaminase levels; R79.89 Other specified abnormal findings of blood chemistry
CPT/HCPCS: 36415; 71045-TC; 76705-TC; 80048-TC; 80053-TC; 80061-TC; 80076-TC; 81001; 82550-TC; 82553; 82728-TC; 83605-TC; 83615-TC; 83735-TC; 83880; 84484-TC; 84703-TC; 85025-TC; 85378-TC; 85610-TC; 85730-TC; 86140-TC; 86803; 87040-TC; 87081-TC; 87340; A4216; C9803; G0378; J1100; J1200; J1650; J1885; J2765; J2930; J7030; J7050

== ENCOUNTER 2021-08-19 13:23 | Inpatient (IN) | payer MEDICAID ==
[~2021-08-19] VITALS: Ht 175.3 cm; Wt 82.1 kg
[~2021-08-19 13:23] MED LIST: DEXA4TAB PO; HYDR25TA4 PO
--- NOTE | 2021-08-19 13:28 | NUR ---
TO ER BED 12, BIB C/O GEN BODY ACHES x 1WK AND BROWN DISCHARGE FROM MOUTH AND NOSE X1WEEK, DENIES SOB AND CHEST PAIN, BREATHING EVEN AND NON LABORED, CONNECTED TO MONITOR, AWAITING MD PARKER
[2021-08-19] MEDS ORDERED: KETOROLAC TROMETHAMINE INJ 30 MG/ML VIAL IV ONE (15:00)
[2021-08-19] MEDS ORDERED: IV NS 0.9% 1,000 ML BAG IV ONE (15:00)
[2021-08-19 15:21] LABS: BASOPHILS # (AUTO) 0.1 K/uL (0.0-0.2); BASOPHILS % (AUTO) 0.7 % (0.0-2.0); EOSINOPHILS % (AUTO) 3.7 % (0.0-6.0); HEMATOCRIT 41 % (33-45); HEMOGLOBIN 13.5 g/dL (11.5-14.8); LYMPHOCYTES # (AUTO) 3.3 K/uL (0.8-4.8); LYMPHOCYTES % (AUTO) 23.1 % (20.0-44.0); MEAN CORPUSCULAR HGB CONC 33 g/dl (31.0-36.0); MEAN CORPUSCULAR VOLUME 94 fL (82-100); MONOCYTES # (AUTO) 0.9 K/uL (0.1-1.30); MONOCYTES % (AUTO) 6.4 % (2.0-12.0); NEUTROPHILS # (AUTO) 9.4 K/uL (1.8-8.9); NEUTROPHILS % (AUTO) 66.1 % (43.0-81.0); PLATELET COUNT (AUTO) 223 K/uL (150-450); RED BLOOD CELL COUNT(AUTO) 4.31 MIL/uL (4.0-5.2); WHITE BLOOD COUNT (AUTO) 14.2 K/uL (4.3-11.0)
[2021-08-19 15:24] LABS: ALBUMIN 2.9 g/dL (3.4-5.0); BILIRUBIN,TOTAL 0.2 mg/dL (0.2-1.0); CALCIUM, SERUM 8.1 mg/dL (8.5-10.1); POTASSIUM 3.6 mmol/L (3.5-5.1); TOTAL PROTEIN, SERUM 6.1 g/dL (6.4-8.2)
[2021-08-19 15:40] LABS: BILIRUBIN,URINE NEGATIVE (NEGATIVE); COLOR,URINE YELLOW (YELLOW); LEUKOCYTE ESTERASE ,URINE NEGATIVE (NEGATIVE); NITRITE, URINE NEGATIVE (NEGATIVE); PH,URINE 5.5 (5.0-8.0); PROTEIN,URINE NEGATIVE (NEGATIVE); UGLUCOSE NEGATIVE (NEGATIVE); UROBILINOGEN,URINE 0.2 EU/dL (0.2)
[2021-08-19] MEDS ORDERED: KETOROLAC TROMETHAMINE INJ 30 MG/ML VIAL ONE (16:00)
[2021-08-19] MEDS ORDERED: ONDANSETRON HCL/PF 4 MG/2 ML VIAL ONE (16:23)
[2021-08-19] MEDS ORDERED: CEFTRIAXONE 1GM BAG (ER ONLY) 50 ML IV ONE (16:23)
[2021-08-19] MEDS ORDERED: MORPHINE SULFATE INJ 2 MG/ML DISP.SYRIN ONE (16:24)
[2021-08-19] MEDS ORDERED: CEFTRIAXONE 1GM BAG (ER ONLY) 1 GM/50 ML PIGGYBACK IV ONE (16:30)
[2021-08-19] MEDS ORDERED: AZITHROMYCIN 500 MG in IV D5W 250 ML IV ONE (16:30)
[2021-08-19] MEDS ORDERED: ONDANSETRON HCL/PF 4 MG/2 ML VIAL IVP ONE (16:30)
[2021-08-19] MEDS ORDERED: MORPHINE SULFATE INJ 2 MG/ML DISP.SYRIN IV ONE (16:30)
[2021-08-19] MEDS ORDERED: IV NS 0.9% 1,000 ML IV ONE (17:00)
--- NOTE | 2021-08-19 19:15 | NUR ---
GOT BED 117-1
[2021-08-19] MEDS: FLUTICASONE PROPIONATE 16 GM BOTTLE NS SCH (20:00)
[2021-08-19] MEDS ORDERED: TEMAZEPAM 7.5 MG CAPSULE PO PRN (20:00)
[2021-08-19] MEDS ORDERED: MAG HYDROX/AL HYDROX/SIMETH 30 ML UDC PO PRN (20:00)
[2021-08-19] MEDS ORDERED: Z GUARD REMEDY 4 OZ OINT TP PRN (20:00)
[2021-08-19] MEDS ORDERED: SALINE NASAL SPRAY 0.65% 1 BOTTLE BOTTLE NS PRN (20:00)
[2021-08-19] MEDS ORDERED: ONDANSETRON HCL/PF 4 MG/2 ML VIAL IVP PRN (20:00)
--- NOTE | 2021-08-19 20:23 | NUR ---
REPORT GIVEN TO Marely HERNANDEZ).
[2021-08-19 20:30] VITALS: BP 99/67
--- NOTE | 2021-08-19 20:41 | NUR ---
PT TRANSFERRED TO [facility] PER ACLS PROTOCOL.
--- NOTE | 2021-08-19 20:45 | NUR ---
BANK OPERATIONS OFFICER NOTES RECEIVED/ADMITTED PATIENT FROM ER VIA [facility] KHALIL SEPSIS BY DR. RYAN PETERSON, AAOX 4, MONGOLIAN SPEAKING, SPEAKS FRENCH, ON ROOM AIR, NO SOB, NOT IN ANY DISTRESS, RESPIRATION UNLABORED. SR HR 78 ON MONITOR.DENIES CHEST PAIN OR DISCOMFORT AT THIS TIME. IV ACCESS TO LEFT AC 20 G FLUSHES WELL SITE CLEAR. SKIN INTACT, AMBULATORY. UNIT ORIENTATION DONE AND USE OF CALL LIGHT. SAFETY MEASURES IN PLACE. BED LOW LOCKED, WILL CONT TO MONITOR.
[2021-08-19] MEDS: IV NS 0.9% 1,000 ML IV PRN (22:52)
[2021-08-20] VITALS: BP 91/58
[2021-08-20] MEDS: ACETAMINOPHEN 325 MG TABLET PO PRN ×3 (00:58→23:50)
[2021-08-20 04:00] VITALS: BP 89/51
--- NOTE | 2021-08-20 06:40 | NUR ---
MISSION SUPPORT SPECIALIST CLOSING NOTES PT IN BED RESTING COMFORTABLY. AAOX 4, EGYPTIAN SPEAKING, SPEAKS FIJIAN, ON ROOM AIR, NO SOB, NOT IN ANY DISTRESS, RESPIRATION UNLABORED. SR HR 70s ON MONITOR. DENIES CHEST PAIN OR DISCOMFORT AT THIS TIME. IVF ONGOING TO LEFT AC 20 G SITE CLEAR. SKIN INTACT, AMBULATORY. CALL LIGHT WITHIN REACH. SAFETY MEASURES IN PLACE. BED LOW LOCKED, ALL NEEDS MET AT THIS TIME. WILL ENDORSE TO NEXT SHIFT FOR SHERWIN.
[2021-08-20 07:12] LABS: BASOPHILS # (AUTO) 0.1 K/uL (0.0-0.2); BASOPHILS % (AUTO) 0.5 % (0.0-2.0); HEMATOCRIT 36 % (33-45); HEMOGLOBIN 11.9 g/dL (11.5-14.8); LYMPHOCYTES # (AUTO) 2.7 K/uL (0.8-4.8); LYMPHOCYTES % (AUTO) 24.6 % (20.0-44.0); MEAN CORPUSCULAR HGB CONC 33 g/dl (31.0-36.0); MEAN CORPUSCULAR VOLUME 95 fL (82-100); MONOCYTES # (AUTO) 0.7 K/uL (0.1-1.30); MONOCYTES % (AUTO) 6.4 % (2.0-12.0); NEUTROPHILS % (AUTO) 64.5 % (43.0-81.0); PLATELET COUNT (AUTO) 201 K/uL (150-450); RED BLOOD CELL COUNT(AUTO) 3.77 MIL/uL (4.0-5.2); WHITE BLOOD COUNT (AUTO) 10.9 K/uL (4.3-11.0)
--- NOTE | 2021-08-20 07:25 | NUR ---
RN OPENING NOTES RECEIVED PT AWAKE, A/O X4, LITHUANIAN SPEAKING, SPEAKS MOROCCAN, ON ROOM AIR, NO SOB, NOT IN ANY DISTRESS, RESPIRATION UNLABORED. SR HR 78 ON MONITOR. NO C/O PAIN OR S/S OF DISTRESS AT THIS TIME. IV ACCESS TO LEFT AC 20 G FLUSHES WELL SITE CLEAR. SKIN INTACT, AMBULATORY. SAFETY MEASURES IN PLACE. BED LOW LOCKED, CALL LIGHT WITHIN REACH, WILL CONT TO MONITOR.
[2021-08-20 07:28] LABS: CALCIUM, SERUM 7.7 mg/dL (8.5-10.1); POTASSIUM 3.8 mmol/L (3.5-5.1)
[2021-08-20] MEDS: PANTOPRAZOLE 40 MG TABLET.DR PO SCH (07:32)
[2021-08-20 08:00] VITALS: BP 98/72
[2021-08-20] MEDS ORDERED: AMOX/CLAVULANATE 875 MG TABLET PO SCH (09:00)
[2021-08-20] MEDS: FLUTICASONE PROPIONATE 16 GM BOTTLE NS SCH ×2 (09:05→21:16)
--- NOTE | 2021-08-20 10:27 | NUR ---
MEDICAL WRITER NOTE SPOKE WITH RYAN MCMULLEN RN ASSISTANT CORPORATE CONTROLLER NOTIFIED THAT PATIENT C\O ABDOMINAL DISCOMFORT ORDERED CT SCAN OF ABDOMEN, ORDER CARRIED OUT
--- NOTE | 2021-08-20 11:48 | NUR ---
telecommunications officer note spoke with Tano Patterson rn inpatient services rn notified that patint c\o headache Tylenol po given still in pain , stated that will check it out also notified that patient c\o face swelling , stated that patient was on steroid before , will cont to monitor closely
[2021-08-20 12:00] VITALS: BP 101/67
[2021-08-20] MEDS: VANCOMYCIN 1 GM in IV D5W 250ml IV SCH (13:09)
[2021-08-20] MEDS ORDERED: MORPHINE SULFATE INJ 2 MG/ML DISP.SYRIN IV PRN (13:30)
[2021-08-20] MEDS ORDERED: HYDROCODONE/APAP 5/325MG TABLET PO PRN (13:30)
[2021-08-20] MEDS: IV NS 0.9% 1,000 ML IV PRN (13:34)
--- NOTE | 2021-08-20 13:44 | NUR ---
radiotelephone operator note Chay brown rn school director notified that patient c\o abdominal discomfort and and severe headache , ordered morphine and Warren prm , and taking now to ct abdomen and pelvis , will f\u
--- NOTE | 2021-08-20 15:00 | NUR ---
SHRIMPING BOAT CAPTAIN NOTE MORPHINE 2 MG IVP GIVEN ORDERED , WILL U\P
[2021-08-20] MEDS: ENOXAPARIN SODIUM 40 MG/0.4 ML DISP.SYRIN SQ SCH (15:24)
--- NOTE | 2021-08-20 15:35 | NUR ---
FORMULA ROOM WORKER NOTE STATED THAT FEELS A LITTLE BETTER AFTER MORPHINE GIVEN , ALL NEEDS ATTENDED ,NEW HL ON RT FA ALEKSANDR 22 INSERTED WITH GOOD BLOOD RETURN, WILL CONT TO MONITOR CLOSELY Addendum: 08/20/21 at 1542 by SRAVANI MANZO RN PER RYAN PETERSON RN STRUCTURAL LAYOUT WORKER OK TO ADVANCE DIET, FULL LIQUID DIET ORDERED, WILL F\U
[2021-08-20 16:00] VITALS: BP 102/70
[2021-08-20] MEDS: PIPERACILLIN /TAZOBACTAM 3.375 G in IV D5W 50 ML IV SCH ×2 (17:08→23:50)
--- NOTE | 2021-08-20 18:25 | NUR ---
MS RN NOTE RESTING COMFORTABLY AT THIS TIME ,NO SOB NOTED, CONT ON IVF ORDERED, OFFERED TYLENOL FOR RT SIDE FACE PAIN , STATED LATTER ON , BED IN LOWEST AND LOCKED POSITION CALL LIGHT WITHIN REACH, WILL CONT TO MONITOR
--- NOTE | 2021-08-20 19:30 | NUR ---
RN NOTE RECEIVED PATIENT IN BED RESTING ALERT ORIENTED X4 VERBALLY RESPONSIVE ON ROOM AIR O2:98% IV SITE IS ON RIGHT FOREARM INTACT PATENT ON IV HYDRATION NS 75CC/HR.SAFETY MEASURE IMPLEMENT BED IN LOW POSITION AND LOCKED, CALL LIGHT WITHIN REACH HEAD OF THE BED ELEVATED CONTINUE TO MONITOR.
[2021-08-20 20:00] VITALS: BP 99/65
[2021-08-21] VITALS: BP 99/65
[2021-08-21] MEDS: VANCOMYCIN 1 GM in IV D5W 250ml IV SCH ×2 (00:30→11:40)
[2021-08-21] MEDS: PIPERACILLIN /TAZOBACTAM 3.375 G in IV D5W 50 ML IV SCH ×4 (06:02→23:22)
--- NOTE | 2021-08-21 07:01 | NUR ---
RN NOTE PATIENT REMAINS ALERT ORIENTEDX4 VERBALLY RESPONSIVE NO SOB NOT ACUTE DISTRESS NOTED ON ROOM AIR O2:98% ALL DUE MEDS GIVEN MD ORDERED ALL NEEDS MET ENDORSE NEXT COMING SHIFT FOR CONTINUATION OF CARE.
[2021-08-21 07:04] LABS: BASOPHILS % (AUTO) 0.6 % (0.0-2.0); EOSINOPHILS % (AUTO) 5.7 % (0.0-6.0); HEMATOCRIT 37 % (33-45); HEMOGLOBIN 12.3 g/dL (11.5-14.8); LYMPHOCYTES # (AUTO) 1.5 K/uL (0.8-4.8); LYMPHOCYTES % (AUTO) 20.5 % (20.0-44.0); MEAN CORPUSCULAR HGB CONC 34 g/dl (31.0-36.0); MEAN CORPUSCULAR VOLUME 94 fL (82-100); MONOCYTES # (AUTO) 0.6 K/uL (0.1-1.30); MONOCYTES % (AUTO) 7.7 % (2.0-12.0); NEUTROPHILS # (AUTO) 4.9 K/uL (1.8-8.9); NEUTROPHILS % (AUTO) 65.5 % (43.0-81.0); PLATELET COUNT (AUTO) 191 K/uL (150-450); RED BLOOD CELL COUNT(AUTO) 3.89 MIL/uL (4.0-5.2); WHITE BLOOD COUNT (AUTO) 7.5 K/uL (4.3-11.0)
--- NOTE | 2021-08-21 07:22 | NUR ---
RN OPENING NOTES RECEIVED PATIENT IN BED, AWAKE, A/O X4. NO SIGNS OF ACUTE DISTRESS NOTED. ON ROOM AIR, TOLERATING WELL. NO SOB NOTED, BREATHING EVEN AND UNLABORED. WITH IV ACCESS ON RFA #22G AND LAC, INTACT AND PATENT. WITH NS @75B ML/HR RUNNING, TOLERATED WELL. SAFETY MEASURES IN PLACE, BED IN LOWEST LOCKED POSITION, SR UP X2, CALL LIGHT PLACED WITHIN EASY REACH. WILL CONTINUE TO MONITOR.
[2021-08-21 07:28] LABS: ALBUMIN 2.5 g/dL (3.4-5.0); BILIRUBIN,TOTAL 0.6 mg/dL (0.2-1.0); CALCIUM, SERUM 8.2 mg/dL (8.5-10.1); CREATININE 0.9 mg/dL (0.6-1.3); POTASSIUM 4.2 mmol/L (3.5-5.1); TOTAL PROTEIN, SERUM 5.8 g/dL (6.4-8.2)
[2021-08-21 07:31] LABS: C-REACTIVE PROTEIN 4.6 mg/dL (0.0-0.9)
[2021-08-21 08:00] VITALS: BP 95/64
[2021-08-21] MEDS: ACETAMINOPHEN 325 MG TABLET PO PRN ×2 (08:05→18:48)
[2021-08-21] MEDS: PANTOPRAZOLE 40 MG TABLET.DR PO SCH (08:05)
[2021-08-21] MEDS: FLUTICASONE PROPIONATE 16 GM BOTTLE NS SCH ×2 (08:05→21:41)
[2021-08-21] MEDS: IV NS 0.9% 1,000 ML IV PRN (09:00)
[2021-08-21] MEDS ORDERED: HYDROMORPHONE 1 MG/1 ML DISP.SYRIN IV PRN (11:30)
--- NOTE | 2021-08-21 14:51 | NUR ---
TEXT DR. TELLO FOR MRI APPROVAL.
[2021-08-21] MEDS: ENOXAPARIN SODIUM 40 MG/0.4 ML DISP.SYRIN SQ SCH (15:14)
[2021-08-21 16:00] VITALS: BP 97/56
--- NOTE | 2021-08-21 18:46 | NUR ---
RN CLOSING NOTES PATIENT IN BED, AWAKE, A/O X4. NO SIGNS OF ACUTE DISTRESS NOTED. ON ROOM AIR, TOLERATING WELL. NO SOB NOTED, BREATHING EVEN AND UNLABORED. WITH IV ACCESS ON RFA #22G AND LAC #20G #20G, INTACT AND PATENT, WITH NS @75 ML/HR RUNNING, TOLERATED WELL. ALL DUE MEDS GIVEN, TOLERATED WELL. SAFETY MEASURES IN PLACE, BED IN LOWEST LOCKED POSITION, SR UP X2, CALL LIGHT PLACED WITHIN EASY REACH. WILL ENDORSE TO NEXT SHIFT.
--- NOTE | 2021-08-21 19:45 | NUR ---
RN OPENING NOTES RECEIVED PATIENT IN BED, AWAKE, A/O X4 AND VERBALLY RESPONSIVE. ON ROOM AIR AND PT TOLERATED WELL. NO SOB NOTED. BREATHING EVEN AND UNLABORED. IV ACCESS ON RFA #22G AND LAC, INTACT AND PATENT. NO S/S OF INFILTRATIONS. RUNNING NS @75 ML/HR, NO C/O PAIN OR DISCOMFORT. NO ACUTE DISTRESS. ALL SAFETY MEASURES IN PLACE, BED IN LOWEST POSITION AND LOCKED. SIDE RAILS UPX2, PLACE CALL LIGHT WITHIN REACH. WILL CONTINUE TO MONITOR.
[2021-08-21 20:00] VITALS: BP 88/50
[2021-08-22] MEDS: VANCOMYCIN 1 GM in IV D5W 250ml IV SCH (00:18)
[2021-08-22 04:00] VITALS: BP 100/58
[2021-08-22] MEDS: PIPERACILLIN /TAZOBACTAM 3.375 G in IV D5W 50 ML IV SCH ×3 (05:30→17:14)
--- NOTE | 2021-08-22 06:45 | NUR ---
RN CLOSING NOTES PATIENT IN BED, AWAKE, A/O X4 AND VERBALLY RESPONSIVE. ON ROOM AIR, O2 SAT 96% AND PT TOLERATED WELL. NO SOB NOTED. BREATHING EVEN AND UNLABORED. IV ACCESS ON RFA #22G AND LAC, INTACT AND PATENT. NO S/S OF INFILTRATIONS. RUNNING NS @75 ML/HR, NO C/O PAIN OR DISCOMFORT. NO ACUTE DISTRESS. ALL DUE MEDS GIVEN ORDER. ALL SAFETY MEASURES IN PLACE, BED IN LOWEST POSITION AND LOCKED. SIDE RAILS UPX2, PLACE CALL LIGHT WITHIN REACH. WILL ENDORSE TO MORNING SHIFT NURSE.
[2021-08-22 07:22] LABS: ALBUMIN 2.6 g/dL (3.4-5.0); BILIRUBIN,TOTAL 0.6 mg/dL (0.2-1.0); CALCIUM, SERUM 8.5 mg/dL (8.5-10.1); MAGNESIUM 2.3 mg/dL (1.8-2.4); TOTAL PROTEIN, SERUM 6.1 g/dL (6.4-8.2)
--- NOTE | 2021-08-22 07:30 | NUR ---
RECEIVED PATIENT IN BED. AWAKE ALERT ORIENTED X 4, NOT IN DISTRESS. NO COMPLAINTS OF PAIN NOTED. IV SITE TO RIGHT FA AND LEFT AC PATENT AND INTACT WITH IV RUNNING NS @ 75CC/HR. BED TO LOWEST POSITION AND LOCKED. CALL LIGHT WITHIN REACH.
[2021-08-22 07:46] LABS: BASOPHILS % (AUTO) 0.9 % (0.0-2.0); EOSINOPHILS % (AUTO) 6.6 % (0.0-6.0); HEMATOCRIT 37 % (33-45); HEMOGLOBIN 12.2 g/dL (11.5-14.8); LYMPHOCYTES # (AUTO) 1.4 K/uL (0.8-4.8); LYMPHOCYTES % (AUTO) 25.7 % (20.0-44.0); MEAN CORPUSCULAR HGB CONC 33 g/dl (31.0-36.0); MEAN CORPUSCULAR VOLUME 95 fL (82-100); MONOCYTES # (AUTO) 0.5 K/uL (0.1-1.30); MONOCYTES % (AUTO) 8.4 % (2.0-12.0); NEUTROPHILS # (AUTO) 3.1 K/uL (1.8-8.9); NEUTROPHILS % (AUTO) 58.4 % (43.0-81.0); PLATELET COUNT (AUTO) 192 K/uL (150-450); RED BLOOD CELL COUNT(AUTO) 3.91 MIL/uL (4.0-5.2); WHITE BLOOD COUNT (AUTO) 5.4 K/uL (4.3-11.0)
[2021-08-22] MEDS: FLUTICASONE PROPIONATE 16 GM BOTTLE NS SCH ×2 (08:18→20:47)
[2021-08-22] MEDS: PANTOPRAZOLE 40 MG TABLET.DR PO SCH (08:18)
[2021-08-22] MEDS ORDERED: GADOTERATE MEGLUMINE 10 MMOL/20 ML VIAL IV ONE (11:49)
[2021-08-22] MEDS: IV NS 0.9% 1,000 ML IV PRN (14:32)
[2021-08-22] MEDS: ENOXAPARIN SODIUM 40 MG/0.4 ML DISP.SYRIN SQ SCH (14:33)
--- NOTE | 2021-08-22 15:05 | NUR ---
RN NOTES PATIENT WAS ENDORSED TO RN ANI FOR WILL BE ADMITTING PATIENT FROM ER PER CHARGE NURSE SRAVANI
[2021-08-22] MEDS: DOCUSATE SODIUM 100 MG CAPSULE PO SCH (16:11)
--- NOTE | 2021-08-22 18:41 | NUR ---
RN CLOSING NOTES PATIENT A/O X4 AWAKE SITTING ON HER BED. VERBALLY RESPONSIVE. O2 SAT 96% RA. NO SOB NOTED. BREATHING EVEN AND UNLABORED. IV ACCESS ON RFA #22G AND LAC, INTACT AND PATENT RUNNING NS @75 ML/HR, NO C/O PAIN OR DISCOMFORT. 1700 AND 1800 DUE MEDS GIVEN ORDER. ALL SAFETY MEASURES IN PLACE, BED IN LOWEST POSITION AND LOCKED. SIDE RAILS UPX2, PLACE CALL LIGHT WITHIN REACH. WILL ENDORSE FOR SHERWIN.
[2021-08-22 20:00] VITALS: BP 104/70
[2021-08-23] MEDS: PIPERACILLIN /TAZOBACTAM 3.375 G in IV D5W 50 ML IV SCH ×5 (00:24→23:32)
[2021-08-23 04:00] VITALS: BP 97/73
--- NOTE | 2021-08-23 06:59 | NUR ---
RN CLOSING NOTES PATIENT A/O X4 VERBALLY RESPONSIVE, O2 SAT >96% RA, NO SOB/ACUTE DISTRESS NOTED, CONTINUE ON IVF RUNNING NS @75 ML/HR, AND ANTIBIOTICS, NO C/O PAIN, N/V OR DISCOMFORT DURING THE NIGHT, ALL SAFETY MEASURES IN PLACE, BED LOCKED AND LOWEST POSITION, SIDE RAILS UPX2, PLACE CALL LIGHT WITHIN REACH, WILL ENDORSE CONTINUITY OF CARE TO ONCOMING NURSE.
[2021-08-23 08:01] LABS: CALCIUM, SERUM 8.3 mg/dL (8.5-10.1); MAGNESIUM 2.1 mg/dL (1.8-2.4); POTASSIUM 4.1 mmol/L (3.5-5.1)
--- NOTE | 2021-08-23 08:05 | NUR ---
RN OPENING NOTES PATIENT AWAKE IN BED RESTING, A/O X4. NO S/S OF PAIN NOTED AT THIS TIME. PATIENT ON ROOM AIR, NO DISTRESS OR SHORTNESS OF BREATH. IV ACCESS LAC #20G INTACT, PATENT AND FLUSHING WELL. FALL AND SAFETY MEASURES IN PLACE, BED ALARM ON, BED IN LOW AND LOCK POSITION, CALL LIGHT AND TABLE WITHIN EASY REACH, SIDE RAILS UP X2. WILL CONTINUE TO MONITOR.
[2021-08-23 08:21] LABS: BASOPHILS % (AUTO) 0.7 % (0.0-2.0); EOSINOPHILS % (AUTO) 6.3 % (0.0-6.0); HEMATOCRIT 37 % (33-45); HEMOGLOBIN 12.3 g/dL (11.5-14.8); LYMPHOCYTES # (AUTO) 1.6 K/uL (0.8-4.8); LYMPHOCYTES % (AUTO) 28.8 % (20.0-44.0); MEAN CORPUSCULAR HGB CONC 33 g/dl (31.0-36.0); MEAN CORPUSCULAR VOLUME 95 fL (82-100); MONOCYTES # (AUTO) 0.5 K/uL (0.1-1.30); MONOCYTES % (AUTO) 9.2 % (2.0-12.0); NEUTROPHILS # (AUTO) 3.1 K/uL (1.8-8.9); PLATELET COUNT (AUTO) 195 K/uL (150-450); RED BLOOD CELL COUNT(AUTO) 3.92 MIL/uL (4.0-5.2); WHITE BLOOD COUNT (AUTO) 5.7 K/uL (4.3-11.0)
[2021-08-23] MEDS: PANTOPRAZOLE 40 MG TABLET.DR PO SCH (10:43)
[2021-08-23] MEDS: DOCUSATE SODIUM 100 MG CAPSULE PO SCH ×2 (10:43→17:08)
[2021-08-23] MEDS: FLUTICASONE PROPIONATE 16 GM BOTTLE NS SCH ×2 (10:47→20:16)
[2021-08-23] MEDS: IV NS 0.9% 1,000 ML IV PRN (14:10)
[2021-08-23] MEDS: ENOXAPARIN SODIUM 40 MG/0.4 ML DISP.SYRIN SQ SCH (15:39)
[2021-08-23 16:00] VITALS: BP 108/73
--- NOTE | 2021-08-23 18:59 | NUR ---
RN CLOSING NOTES PATIENT AWAKE IN BED RESTING, A/O X4. NO S/S OF PAIN NOTED AT THIS TIME. PATIENT ON ROOM AIR, NO DISTRESS OR SHORTNESS OF BREATH. IV ACCESS LAC #20G INTACT, PATENT AND FLUSHING WELL. FALL AND SAFETY MEASURES IN PLACE, BED ALARM ON, BED IN LOW AND LOCK POSITION, CALL LIGHT AND TABLE WITHIN EASY REACH, SIDE RAILS UP X2. WILL ENDORSE TO CHEF GERMAN.
--- NOTE | 2021-08-23 19:10 | NUR ---
RN NOTE RECEIVED PATIENT IN BED RESTING ALERT ORIENTED X4 VERBALLY RESPONSIVE ON ROOM AIR O2:95% IV SITE IS ON LEFT AC INTACT PATINET ON IV HYDRATION NS 75CC/HR,AMBULATORY CONTINET BOWEL/BLADDER.SAFETY MEASURE IMPLEMENT BED IN LOW POSITION AND LOCKED,CALL LIGHT WITHIN REACH CONTINUE TO MONITOR.
[2021-08-24] VITALS: BP 103/70
[2021-08-24] MEDS: PIPERACILLIN /TAZOBACTAM 3.375 G in IV D5W 50 ML IV SCH ×2 (05:27→11:51)
[2021-08-24] MEDS: IV NS 0.9% 1,000 ML IV PRN (06:18)
[2021-08-24 06:30] LABS: BASOPHILS # (AUTO) 0.1 K/uL (0.0-0.2); EOSINOPHILS % (AUTO) 5.5 % (0.0-6.0); HEMATOCRIT 35 % (33-45); HEMOGLOBIN 12.1 g/dL (11.5-14.8); LYMPHOCYTES # (AUTO) 1.6 K/uL (0.8-4.8); LYMPHOCYTES % (AUTO) 28.8 % (20.0-44.0); MEAN CORPUSCULAR HGB CONC 34 g/dl (31.0-36.0); MEAN CORPUSCULAR VOLUME 94 fL (82-100); MONOCYTES # (AUTO) 0.5 K/uL (0.1-1.30); MONOCYTES % (AUTO) 8.4 % (2.0-12.0); NEUTROPHILS # (AUTO) 3.2 K/uL (1.8-8.9); NEUTROPHILS % (AUTO) 56.3 % (43.0-81.0); PLATELET COUNT (AUTO) 204 K/uL (150-450); RED BLOOD CELL COUNT(AUTO) 3.78 MIL/uL (4.0-5.2); WHITE BLOOD COUNT (AUTO) 5.7 K/uL (4.3-11.0)
--- NOTE | 2021-08-24 06:31 | NUR ---
RN NOTE PATIENT REMAINS ON ALERT ORIENTED X4 VERBALLY RESPONSIVE ON ROOM AIR NO SOB NOT ACUTE DISTRESS NOTED,ALL DUE MEDS GIVEN MD ORDERED,KEPT CALL LIGHT WITHIN REACH ALL NEEDS MET ENDORSE NEXT COMING SHIFT FOR CONTINUATION OF CARE.
--- NOTE | 2021-08-24 07:30 | NUR ---
RN OPENING NOTE PATIENT AWAKE IN BED RESTING, A/O X4. NO S/S OF PAIN NOTED AT THIS TIME. PATIENT ON ROOM AIR, NO DISTRESS OR SHORTNESS OF BREATH. IV ACCESS LAC #20G INTACT, PATENT AND FLUSHING WELL RUNNING NS @ 75ML/HR. FALL AND SAFETY MEASURES IN PLACE, BED ALARM ON, BED IN LOW AND LOCK POSITION, CALL LIGHT AND TABLE WITHIN EASY REACH, SIDE RAILS UP X2. WILL CONTINUE TO MONITOR
[2021-08-24 07:33] LABS: CALCIUM, SERUM 8.4 mg/dL (8.5-10.1); MAGNESIUM 2.1 mg/dL (1.8-2.4); PHOSPHORUS 2.9 mg/dL (2.5-4.9); POTASSIUM 4.1 mmol/L (3.5-5.1)
[2021-08-24 08:00] VITALS: BP 111/81
[2021-08-24] MEDS: PANTOPRAZOLE 40 MG TABLET.DR PO SCH (08:08)
[2021-08-24] MEDS: DOCUSATE SODIUM 100 MG CAPSULE PO SCH (08:08)
[2021-08-24] MEDS: FLUTICASONE PROPIONATE 16 GM BOTTLE NS SCH (08:10)
[2021-08-24] MEDS ORDERED: AMOX-430 PO (13:54)
[2021-08-24] MEDS: ENOXAPARIN SODIUM 40 MG/0.4 ML DISP.SYRIN SQ SCH (15:00)
--- NOTE | 2021-08-24 15:09 | NUR ---
RN NOTE PATIENT DUE TO BE DISCHARGED SOON. PATIENT DECLINED LOVENOX ADMINISTRATION.
--- NOTE | 2021-08-24 15:53 | NUR ---
GENERATION ENGINEER NOTE PATIENT CLEARED FOR DISCHARGE TO HOME PER MD ORDER. PATIENT HAD LAC AND R HAND PIV REMOVED. BOTH INTACT W/ NO SIGN OF PROFUSE BLEEDING AT SITES OF ENTRY. PATIENT BREATHING EVEN AND UNLABORED WITH NO SIGNS OF RESPIRATORY DISTRESS AND O2SAT OF 98%. PATIENT ABLE TO AMBULATE W/ ASSISTANCE. PATIENT GAVE VERBAL CONFIRMATION OF UNDERSTANDING MD DISCHARGE ORDERS. PATIENT EXPLAINED OF THE NEED FOR FOLLOW UP WITH PCP/ENT AND TO FINISH FULL COURSE OF ABX UPON DISCHARGE TO HOME. ALL PATIENT NEEDS MET. PATIENT WAS PICKED UP BY SON AND REMAINED STABLE AT TIME OF DISCHARGE.
== END 2021-08-24 17:00 | disposition home or self-care (01) | DRG 720 ==
LOC: ER 13:50 → TELE1 19:44 → MEDSG1 08-20 18:14
PROVIDERS: ADMIT Nurse Practitioner Family; ATTEND Student in an Organized Health Care Education/Training Program
DX: A41.9 Sepsis, unspecified organism (principal); K85.00 Idiopathic acute pancreatitis without necrosis or infection; E87.1 Hypo-osmolality and hyponatremia; Z20.822 Contact with and (suspected) exposure to COVID-19; Z86.16 Personal history of COVID-19; Z87.01 Personal history of pneumonia (recurrent); J01.90 Acute sinusitis, unspecified; Z98.891 History of uterine scar from previous surgery; R73.9 Hyperglycemia, unspecified; J34.2 Deviated nasal septum; Z79.899 Other long term (current) drug therapy; B96.89 Other specified bacterial agents as the cause of diseases classified elsewhere
CPT/HCPCS: 36415; 70486-TC; 70542-TC; 71045-TC; 80048-TC; 80053-TC; 80076-TC; 80202-TC; 83605-TC; 83690-TC; 83735-TC; 83880; 84100-TC; 84703-TC; 85025-TC; 85652-TC; 86140-TC; 87040-TC; 87070-TC; 87081-TC; 87086-TC; 87806; A9575; G0378; J0456; J0696; J1650; J1885; J2270; J2405; J2543; J3370; J7030; J7060

== ENCOUNTER 2022-06-05 09:05 | Emergency (ER) | payer MEDICAID ==
[~2022-06-05] VITALS: Ht 175.3 cm; Wt 79.8 kg
[~2022-06-05 09:05] MED LIST changes: +AMOX-430 PO
[2022-06-05 09:29] VITALS: BP 133/76
== END 2022-06-05 10:12 | disposition home or self-care (01) ==
LOC: ER 09:05
DX: Z42.1 Encounter for breast reconstruction following mastectomy (principal); Z79.899 Other long term (current) drug therapy

== ENCOUNTER 2023-07-28 13:15 | Emergency (ER) | payer MEDICAID ==
[~2023-07-28] VITALS: Ht 170.2 cm; Wt 74.8 kg
[2023-07-28] MEDS ORDERED: FAMOTIDINE/PF INJ 20 MG/2 ML VIAL IV ONE (13:50)
[2023-07-28] MEDS ORDERED: methylPREDNISolone SOD SUCC 125 MG/2ML VIAL ONE (13:50)
[2023-07-28] MEDS ORDERED: diphenhydrAMINE HCL 50 MG/ML VIAL ONE (13:50)
[2023-07-28] MEDS: diphenhydrAMINE HCL 50 MG/ML VIAL IV ONE (13:53)
[2023-07-28] MEDS: FAMOTIDINE/PF INJ 20 MG/2 ML VIAL IV ONE (13:53)
[2023-07-28] MEDS: methylPREDNISolone SOD SUCC 125 MG/2ML VIAL IV ONE (13:54)
[2023-07-28] MEDS ORDERED: PRED50TA PO (14:20)
[2023-07-28 17:10] VITALS: BP 106/67; TEMP 98.4; O2SAT 95
[2023-07-29] MEDS ORDERED: DIPH25CA83 PO (18:07)
[2023-07-29] MEDS ORDERED: LORA10TA7 PO (18:07)
== END 2023-07-28 17:11 | disposition home or self-care (01) ==
LOC: ER 13:29
DX: R06.02 Shortness of breath (principal); R21 Rash and other nonspecific skin eruption; T78.40XA Allergy, unspecified, initial encounter; Z98.890 Other specified postprocedural states; Z79.899 Other long term (current) drug therapy; X58.XXXA Exposure to other specified factors, initial encounter
CPT/HCPCS: 99285; 96374; 71045; 96375; J1200; J3490; J2930

== ENCOUNTER 2023-07-29 15:41 | Emergency (ER) | payer MEDICAID ==
[~2023-07-29] VITALS: Ht 175.3 cm; Wt 89.4 kg
[~2023-07-29 15:41] MED LIST changes: +PRED50TA PO
[2023-07-29] MEDS ORDERED: LORAZEPAM 0.5 MG TABLET ONE ×2 (16:09→17:27)
[2023-07-29] MEDS: LORAZEPAM 1 MG TABLET PO ONE ×2 (16:13→17:30)
[2023-07-29] MEDS ORDERED: methylPREDNISolone SOD SUCC 125 MG/2ML VIAL ONE (16:20)
[2023-07-29] MEDS ORDERED: FAMOTIDINE/PF INJ 20 MG/2 ML VIAL IV ONE (16:21)
[2023-07-29] MEDS: FAMOTIDINE/PF INJ 20 MG/2 ML VIAL IV ONE (16:28)
[2023-07-29] MEDS: methylPREDNISolone SOD SUCC 125 MG/2ML VIAL IV ONE (16:29)
[2023-07-29] MEDS ORDERED: LORATADINE 10 MG TABLET ONE (17:27)
[2023-07-29] MEDS ORDERED: LORATADINE 10 MG TABLET PO ONE (17:30)
[2023-07-29] MEDS: LORATADINE 10 MG TABLET PO SCH (17:31)
[2023-07-29] MEDS ORDERED: DIPH25CA83 PO (18:07)
[2023-07-29] MEDS ORDERED: LORA10TA7 PO (18:07)
[2023-07-29 18:40] VITALS: BP 128/89; TEMP 98.2; O2SAT 100
== END 2023-07-29 18:40 | disposition home or self-care (01) ==
LOC: ER 15:41
DX: R06.02 Shortness of breath (principal)
CPT/HCPCS: 99284; 96374; 96375; J3490; J2930

== ENCOUNTER 2023-07-30 18:22 | Emergency (ER) | payer MEDICAID ==
[~2023-07-30] VITALS: Ht 170.2 cm; Wt 87.5 kg
[~2023-07-30 18:22] MED LIST changes: +DIPH25CA83 PO; +LORA10TA7 PO
[2023-07-30] MEDS ORDERED: IPRATROPIUM NEB FS 0.5 MG/2.5 ML AMPUL.NEB NEB ONE (18:30)
[2023-07-30] MEDS ORDERED: ALBUTEROL FS 2.5 MG/0.5 ML VIAL.NEB NEB ONE (18:30)
[2023-07-30] MEDS ORDERED: EPINEPHRINE (1:1000) 1 MG/ML AMPUL ONE (18:34)
[2023-07-30] MEDS: EPINEPHRINE (1:1000) 1 MG/ML AMPUL SUBCUT ONE (18:39)
[2023-07-30 18:40] VITALS: TEMP 98.4
[2023-07-30] MEDS: ALBUTEROL FS 2.5 MG/0.5 ML VIAL.NEB NEB ONE (19:00)
[2023-07-30 19:19] LABS: BASOPHILS # (AUTO) 0.1 K/uL (0.0-0.2); BASOPHILS % (AUTO) 0.3 % (0.0-2.0); EOSINOPHILS % (AUTO) 0.1 % (0.0-6.0); HEMATOCRIT 40 % (33-45); HEMOGLOBIN 13.6 g/dL (11.5-14.8); LYMPHOCYTES # (AUTO) 2.6 K/uL (0.8-4.8); LYMPHOCYTES % (AUTO) 12.2 % (20.0-44.0); MEAN CORPUSCULAR HEMOGLOBIN 32 PG (26.0-33.0); MEAN CORPUSCULAR HGB CONC 34 g/dl (31.0-36.0); MEAN CORPUSCULAR VOLUME 95 fL (82-100); MONOCYTES # (AUTO) 1.1 K/uL (0.1-1.30); NEUTROPHILS # (AUTO) 17.5 K/uL (1.8-8.9); NEUTROPHILS % (AUTO) 82.4 % (43.0-81.0); PLATELET COUNT (AUTO) 369 K/uL (150-450); RED BLOOD CELL COUNT(AUTO) 4.21 MIL/uL (4.0-5.2); RED CELL DISTRIBUTION WIDTH 14.3 % (11.5-15.0); WHITE BLOOD COUNT (AUTO) 21.2 K/uL (4.3-11.0)
[2023-07-30] MEDS ORDERED: LORAZEPAM INJ 2 MG/ML VIAL ONE (19:19)
[2023-07-30] MEDS: LORAZEPAM INJ 2 MG/ML VIAL IV ONE (19:22)
[2023-07-30 19:42] LABS: CALCIUM, SERUM 9.7 mg/dL (8.5-10.1); CARBON DIOXIDE 19 mmol/L (21-32); CHLORIDE 104 mmol/L (98-107); CREATININE 1.2 mg/dL (0.6-1.3); GLUCOSE 143 mg/dL (74-106); POTASSIUM 4.1 mmol/L (3.5-5.1); SODIUM SERUM 138 mmol/L (136-145); UREA NITROGEN, BLOOD 18 mg/dL (7-18)
[2023-07-30 19:48] LABS: ALANINE AMINOTRANSFERASE 16 U/L (12-78); ALBUMIN 3.9 g/dL (3.4-5.0); ALKALINE PHOSPHATASE 74 U/L (46-116); ASPARTATE AMINOTRANSFERASE 11 U/L (15-37); BILIRUBIN,DIRECT 0.1 mg/dL (0.0-0.2); BILIRUBIN,TOTAL 0.5 mg/dL (0.2-1.0); TOTAL PROTEIN, SERUM 7.3 g/dL (6.4-8.2)
[2023-07-30 21:15] VITALS: O2SAT 97
[2023-07-30] MEDS ORDERED: ALBUTEROL FS 2.5 MG/0.5 ML VIAL.NEB ONE (21:19)
[2023-07-30 21:25] VITALS: O2SAT 99
[2023-07-30 22:02] VITALS: BP 123/77; O2SAT 98
== END 2023-07-30 22:03 | disposition home or self-care (01) ==
LOC: ER 18:24
DX: T78.40XA Allergy, unspecified, initial encounter (principal); R06.02 Shortness of breath; X58.XXXA Exposure to other specified factors, initial encounter
CPT/HCPCS: 99285; 96374; 71045; 85025; 80048; 80076; 36415; 84484; 94799; 94640; 96372; J2060; J0171

== ENCOUNTER 2023-07-31 17:34 | Emergency (ER) | payer MEDICAID ==
[~2023-07-31] VITALS: Ht 170.2 cm; Wt 87.5 kg
[2023-07-31 17:51] VITALS: BP 127/88; TEMP 97.9; O2SAT 96
== END 2023-07-31 21:18 | disposition left against medical advice (07) ==
LOC: ER 17:47
DX: R06.02 Shortness of breath (principal); Z53.21 Procedure and treatment not carried out due to patient leaving prior to being seen by health care provider

== ENCOUNTER 2023-12-28 07:13 | Emergency (ER) | payer MEDICAID ==
[~2023-12-28] VITALS: Ht 175.3 cm; Wt 77.6 kg
[2023-12-28 07:34] VITALS: BP 104/59; TEMP 98.3
[2023-12-28] MEDS ORDERED: ERYT3.5O9 EACHEYE (07:49)
[2023-12-28 07:55] VITALS: O2SAT 98
== END 2023-12-28 07:57 | disposition home or self-care (01) ==
LOC: ER 07:13
DX: B30.9 Viral conjunctivitis, unspecified (principal)